=== PATIENT | female | born 1985 | race Hispanic/Latino ===

== ENCOUNTER 2025-04-06 07:46 | Day surgery (SDC) | payer OTHER ==
[2025-04-02 09:14] LABS: IMMATURE GRANULOCYTE ABSOLUTE 0.03 K/uL (0-1); NUCLEATED RED BLOOD CELLS 0.0 % (0.0-0.19); PLATELET COUNT (AUTO) 318 K/uL (130-400); RED BLOOD CELL COUNT(AUTO) 4.23 MIL/uL (4.00-5.50); RED CELL DISTRIBUTION WIDTH 13.1 % (11.0-15.5); WHITE BLOOD COUNT (AUTO) 7.6 K/uL (4.8-10.8)
[2025-04-02 09:21] LABS: CREATININE 0.5 mg/dL (0.5-1.0); GLOMERULAR FILTR. RATE CALC 122.0 mL/min (>90); GLUCOSE,RANDOM 100.0 mg/dL (70-105); SODIUM SERUM 138.0 mmol/L (136-145); UREA NITROGEN, BLOOD 10.0 mg/dL (7-18)
[2025-04-02 09:25] VITALS: BP 152/77; PULSE 92; RESP 16; TEMP 98.6
[2025-04-02 09:32] LABS: INR 1.02 (0.85-1.15)
--- NOTE | 2025-04-02 09:47 | EKG ---
[facility] Test Date: 2025-04-02 Test Time: 09:01:02 Pat Name: ROBERT PUENTESDepartment: [facility] Room: Gender: F [employer]er: [id number] : 1985 Requested By: ELDA MATA Order Number: [id number] Reading MD: John Gomez Measurements Intervals Bird In Hand Rate: 79 P: 11 TX: 136 QRS: 13 QRSD: 78 T: 16 QT: 375 QTc: 429 Interpretive Statements Sinus rhythm No previous ECG available for comparison Electronically Signed On 04-02-2025 17:47:24 CDT by John Gomez Please click the below link to view image of tracing.
--- NOTE | 2025-04-03 10:41 | HMCIMG ---
EXAM: CR Chest, 1 View. CLINICAL HISTORY: NH-OP COMPARISON: None provided. FINDINGS: LUNGS: The lungs show no infiltrate or other acute finding. PLEURAL SPACES: No evidence of pleural effusion or pneumothorax. MEDIASTINUM: The cardiomediastinal silhouette is within normal limits. BONES: No acute osseous abnormality. IMPRESSION: No acute cardiopulmonary pathology is evident. /Wing
[2025-04-06] VITALS (17 sets, daily range): BP systolic 118–135; BP diastolic 62–85; PULSE 81–107; RESP 15–18; TEMP 97.3–97.8
[~2025-04-06] VITALS: Ht 154.9 cm; Wt 78.8 kg
[~2025-04-06 07:46] MED LIST: LACTATED RINGERS 1000ML 1,000 ML IV ONE; MULTIVITAMIN PO
[2025-04-06] MEDS ORDERED: PROMETHAZINE HCL 25 MG/ML 1ML AMPULE IM PRN (08:30)
[2025-04-06] MEDS ORDERED: MIDAZOLAM HCL 1 MG/ML 2ML VIAL ONE (09:59)
--- NOTE | 2025-04-06 11:14 | OP ---
Operative Note: DATE OF PROCEDURE: 04/06/25 SURGEON: ELDA MATA MD [employer] SALESPERSON: [] ANESTHESIA: [] General ANESTHESIOLOGIST/[employer]ICE: [] PREOPERATIVE DIAGNOSIS: [] Umbilical hernia POSTOPERATIVE DIAGNOSIS: [] The same incarcerated SYNOPSIS: [] PROCEDURE: [] Open umbilical hernia repair with mesh ESTIMATED BLOOD LOSS: [] None INDICATIONS: [] DESCRIPTION OF PROCEDURE: [] With the patient prepped in usual fashion an infraumbilical incision was done. Using cautery and blunt dissection I was able to dissect the sac of this incarcerated hernia the fascia was exposed and I have to open the sac. In the sac there was omentum and we dissected from the fascia and transected the hernia sac and some of the omentum. Ligated and tied with a silk suture. After this was done I cleaned the defect of the hernia that was about4 cm in diameter. I then placed a Ventralex mesh 4.6 cm and anchored to the four corners with a 2-0 Prolene suture. The fascia was approximated with a 2-0 Prolene interrupted to cover the mesh. After this was done I had to excise small amount of skin because of the size of the hernia. I then anchored the belly button to the fascia with 2-0 Vicryl. I approximated subcutaneous tissue with a 3-0 Vicryl. And I closed the skin with 4-0 Monocryl and Dermabond. The patient had a abdominal tap block by anesthesia before the procedure. The sac and hernia contents were sent to pathology ELDA MATA MD Apr 06, 2025 11:14
[2025-04-06] MEDS ORDERED: NEOSTIGMINE METHYLSULFATE 1MG/ML IV ONE (11:25)
[2025-04-06] MEDS ORDERED: GLYCOPYRROLATE 0.2 MG/ML 5 ML VIAL ONE (11:25)
== END 2025-04-06 13:25 | disposition home or self-care (01) ==
LOC: DAH 07:46
PROVIDERS: ATTEND Surgery
DX: K42.0 Umbilical hernia with obstruction, without gangrene (principal); E78.5 Hyperlipidemia, unspecified; E66.9 Obesity, unspecified; Z68.32 Body mass index [BMI] 32.0-32.9, adult; Z79.01 Long term (current) use of anticoagulants; Z83.3 Family history of diabetes mellitus; Z91.030 Bee allergy status
CPT/HCPCS: 80048; 84703; 85025; 85610; 85730; 36415; 71045; 93005; 49594; 64488; 81025; 88302; A4663; C1781; J7120; J3010 ×4; J2270; J3490 ×2; J2250; J2704; J2405; J2710; J2795; J0690; A4930 ×2; A4215; A4213; A4222; A4221; A4216; A4450; A4223 ×2; A4600